=== PATIENT | male | born 1975 | race Caucasian/White ===

== ENCOUNTER 2018-07-04 00:54 | Inpatient (IN) ==
[2018-07-04] MEDS ORDERED: Diphtheria/Tetanus/Pertussis Vaccine Inj 0.5 ML Syringe IM ONE (01:02)
[2018-07-04] MEDS ORDERED: ceFAZolin 2 GM Premix Inj 2 GM/50 ML PIGGYBACK IV.SIG ONE (01:02)
[2018-07-04 01:18] LABS: Baso # (Auto) 0.1 th/mm3 (0.0-0.2); Baso % (Auto) 0.9 % (0.0-2.0); Eos # (Auto) 0.2 th/mm3 (0.0-0.4); Eos % (Auto) 1.8 % (0.0-4.0); Hematocrit 45.2 % (39.0-51.0); Hemoglobin 15.3 gm/dL (13.0-17.0); Lymph # (Auto) 2.8 th/mm3 (1.0-4.8); Lymph % (Auto) 22.4 % (9.0-44.0); Mean Corpuscular HGB Conc 33.8 % (32.0-36.0); Mean Corpuscular Hemoglobin 31.8 pg (27.0-34.0); Mean Corpuscular Volume 94.1 fL (80.0-100.0); Mean Platelet Volume 8.3 fL (7.0-11.0); Mono # (Auto) 0.7 th/mm3 (0.0-0.9); Mono % (Auto) 5.2 % (0.0-8.0); Neut # (Auto) 8.8 th/mm3 (1.8-7.7); Neut % (Auto) 69.7 % (16.0-70.0); Platelet Count 251 th/mm3 (150-450); Red Blood Count 4.81 mil/mm3 (4.50-5.90); Red Cell Distribution Width 13.2 % (11.6-17.2); White Blood Count 12.6 th/mm3 (4.0-11.0)
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
[2018-07-04 01:29] LABS: Activated Partial Thrombo Time 23.4 sec (24.3-30.1); INR 1.1 Ratio; Prothrombin Time 10.7 sec (9.8-11.6)
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
[2018-07-04] MEDS ORDERED: KCL 40 mEq/D5W/NaCl 0.45% Inj 1,000 ML IV.CONT SCH (02:00)
[2018-07-04] MEDS ORDERED: Lidocaine 2%/Epinephrine 1:100,000 Inj 20 ML Vial NERV BLOCK ONE (02:08)
[2018-07-04] MEDS ORDERED: Multivitamin Inj 10 ML, Thiamine Inj 100 MG, Folic Acid Inj 1 MG in Sodium Chlor 0.9% I... IV.SIG SCH (03:00)
[2018-07-04] MEDS ORDERED: Pantoprazole Inj 40 MG Vial IV.PUSH SCH (03:00)
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
[2018-07-04] MEDS ORDERED: Chlorhexidine Gluconate 2% 1 Pack (2 Cloths) TOPICAL PRN (04:00)
[2018-07-04] MEDS ORDERED: HYDROmorphone PF Inj 2 MG/ML Vial IV.PUSH SCH (04:00)
[2018-07-04] MEDS ORDERED: Chlorhexidine Gluconate 2% 1 Pack (2 Cloths) TOPICAL SCH (04:00)
[2018-07-04] MEDS: Sod Chloride 0.9% Inj 1,000 ML IV.CONT SCH ×2 (04:10→14:08)
[2018-07-04] MEDS: Docusate Sodium 100 MG Capsule PO SCH ×2 (04:52→09:03)
[2018-07-04] MEDS ORDERED: levETIRAcetam 500mg/100mL Inj 100 ML IV.SIG SCH (06:00)
[2018-07-04] MEDS: HYDROmorphone PF Inj 2 MG/ML Vial IV.PUSH SCH ×3 (07:03→17:13)
[2018-07-04] MEDS ORDERED: Senna/Docusate Sodium 8.6/50 MG Tablet PO SCH (09:00)
[2018-07-04 09:51] LABS: Hematocrit 40.7 % (39.0-51.0); Hemoglobin 14.1 gm/dL (13.0-17.0); Mean Corpuscular HGB Conc 34.7 % (32.0-36.0); Mean Corpuscular Hemoglobin 32.6 pg (27.0-34.0); Mean Corpuscular Volume 93.8 fL (80.0-100.0); Mean Platelet Volume 8.6 fL (7.0-11.0); Platelet Count 242 th/mm3 (150-450); Red Blood Count 4.34 mil/mm3 (4.50-5.90); Red Cell Distribution Width 13.2 % (11.6-17.2); White Blood Count 12.9 th/mm3 (4.0-11.0)
[2018-07-04 10:08] LABS: Albumin 3.5 g/dL (3.4-5.0); Calcium 7.4 mg/dL (8.5-10.1); Carbon Dioxide 26.5 meq/L (21.0-32.0); Potassium 3.5 meq/L (3.5-5.1); Total Protein 6.9 g/dL (6.4-8.2)
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
[2018-07-04 14:06] VITALS: BP 182/99; PULSE 94; TEMP 98; O2SAT 94
--- NOTE | 2018-07-04 15:11 | OTSOAPIP ---
TIME SESSION COMPLETED: PM TREATMENT TIME: 0 MINS. CHART REVIEWED. ATTEMPTED TO SEE PATIENT HOWEVER PATIENT REPORTED NOT FEELING WELL AND REQUESTED TO BE SEEN TOMORROW. PLAN: WILL SEE PATIENT NEXT TREATMENT DAY INTERDISCIPLINARY COMMUNICATION: NURSING INFORMED. SUPERVISION AT HOME FOR SAFETY ___ OTHER: Therapist: Torsten Krueger Signature on file
[2018-07-04 17:14] VITALS: RESP 21
--- NOTE | 2018-07-05 17:02 | P.AMA ---
AMA Note - AMA Note Recommended Treatment Course: Patient Glenn Oneil has decided to leave the hospital against medical advice. This patient has the capacity to refuse care and understands the risks of leaving, including permanent disability and/or , and has had an opportunity to ask questions about his/her condition. The patient has been informed that he/she may return for care at any time, and follow up has been arranged/advised. AMA Statement: Patient Glenn Oneil has decided to leave the hospital against medical advice. This patient has the capacity to refuse care and understands the risks of leaving, including permanent disability and/or , and has had an opportunity to ask questions about his/her condition. The patient has been informed that he/she may return for care at any time, and follow up has been arranged/advised. - AMA Note Patient Condition on Discharge: Stable
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
== END 2018-07-04 20:07 | disposition left against medical advice (07) ==
LOC: NEPI 00:54 → NEDA 01:53 → EDBD 01:53 → N03 03:10
PROVIDERS: ADMIT Surgery; ATTEND Surgery